=== PATIENT | female | born 1955 ===

== ENCOUNTER 2018-02-22 10:01 | Inpatient (IN) | payer MEDICAID ==
[2018-02-15 11:34] LABS: APPEARANCE,URINE CLEAR; BILIRUBIN, URINE NEGATIVE (NEGATIVE); COLOR,URINE PALE YELLOW; GLUCOSE, URINE (UA) NEGATIVE (NEGATIVE); KETONES,URINE NEGATIVE (NEGATIVE); NITRITE,URINE NEGATIVE (NEGATIVE); PH,URINE 6 (4.5-8.0); PROTEIN,URINE NEGATIVE (NEGATIVE); UROBILINOGEN,URINE NORMAL MG/DL (0.0-1.0)
[2018-02-15 11:36] LABS: EOSINOPHILS % (AUTO) 0.6 % (0.0-3.0); HEMATOCRIT 43.5 % (37.0-47.0); HEMOGLOBIN 14.5 G/DL (12.0-16.0); LYMPHOCYTES % (AUTO) 34.2 % (20.0-45.0); MEAN CORPUSCULAR VOLUME 87 FL (80-99); MONOCYTES % (AUTO) 4.1 % (1.0-10.0); NEUTROPHILS % (AUTO) 60.1 % (45.0-75.0); PLATELET COUNT 142 K/UL (150-450); RED CELL DISTRIBUTION WIDTH 11.4 % (11.6-14.8); WHITE BLOOD COUNT 7.4 K/UL (4.8-10.8)
[2018-02-15 12:15] LABS: LEUKOCYTE ESTERASE ,URINE 2+ (NEGATIVE)
[2018-02-15 13:02] LABS: ALANINE AMINOTRANSFERASE 84 U/L (12-78); ALKALINE PHOSPHATASE 121 U/L (46-116); ANION GAP 10 mmol/L (5-15); ASPARTATE AMINO TRANSFERASE 45 U/L (15-37); BILIRUBIN,TOTAL 0.7 MG/DL (0.2-1.0); BLOOD UREA NITROGEN 14 mg/dL (7-18); CALCIUM 9.6 MG/DL (8.5-10.1); CARBON DIOXIDE 27 MMOL/L (21-32); CHLORIDE 105 MMOL/L (98-107); CREATININE 0.7 MG/DL (0.55-1.30); POTASSIUM 3.9 MMOL/L (3.5-5.1); SODIUM 142 MMOL/L (136-145)
--- NOTE | 2018-02-21 11:15 | Pre-op HX & Phy Repo 2 SIG ---
DATE OF ADMISSION: 02/22/2018 PREOPERATIVE HISTORY AND PHYSICAL DATE SCHEDULED FOR OUTPATIENT SURGERY: 02/22/2018. HISTORY OF PRESENT ILLNESS: The patient is a 62-year-old female in overall stable health, with two foci of invasive ductal carcinoma of her left breast. The patient presented for screening mammography and was found to have a 13 mm spiculated mass in the left mid breast at 1 to 1:30 position approximately 5 to 6 cm from the nipple. She also was found to have a left more posterior small spiculated mass at 2:30 approximately 2 cm from the nipple. Core biopsy of both revealed invasive ductal carcinoma, moderately differentiated. Estrogen and progesterone receptor positive. HER2-negative. The patient is scheduled to undergo left breast partial mastectomy to encompass both lesions with preoperative needle localization and left axillary lymph node biopsy. MEDICATIONS: Metformin. ALLERGIES: None. OPERATIONS: Cholecystectomy. PHYSICAL EXAMINATION: VITAL SIGNS: The patient is 5 feet 1 inch, 149 pounds. Vital signs are all within normal limits. HEENT: Within normal limits. LUNGS: Clear. HEART: Regular rhythm. BREASTS: There are no palpable masses of either breast and no palpable axillary or supraclavicular lymphadenopathy. ABDOMEN: Soft with scars from cholecystectomy. 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 RECTAL: Per primary care, family consumer science f[employer] teacher. EXTREMITIES: Without edema. NEUROLOGIC: Physiologic. IMPRESSION: Invasive ductal carcinoma, moderately differentiated, two foci left breast upper outer quadrant. PLAN: Full discussion has been had with the patient, who has also consulted with Oncology. The oncologist recommended to proceed with the surgery as planned without any preoperative treatment. I had a full discussion with the patient regarding the nature of the condition, the nature of the surgery to include left breast partial mastectomy with preoperative needle localization x2 and left axillary lymph node biopsy. I have discussed the potential need for chemotherapy based on final pathology and the need for radiation therapy to the remaining breast and potential for additional procedures being needed based on final pathology of the two breast lesions and the lymph node. I have also discussed the potential need for postoperative chemotherapy and postoperative radiation therapy. I have discussed the risks of surgery including bleeding, infection, need for additional procedures, scarring, distortion of the breast, neuritic or neuralgia symptoms from the axillary node, procedure, etc. All questions have been answered. She understands and agrees to proceed. Toñito Ortega M.D. DR: ELKE JOB#: [id number] CC:
--- NOTE | 2018-02-21 17:15 | Cardiology Report ---
APPROVED REPORT EKG Measurement Heart [id number] ID [id number] Normal sinus rhythm Cannot rule out Anterior infarct, age undetermined Abnormal ECG
[~2018-02-22] VITALS: Ht 154.9 cm; Wt 65.8 kg
[2018-02-22] VITALS (11 sets, daily range): BP systolic 97–149; BP diastolic 56–82
[~2018-02-22 10:01] MED LIST: ceFAZolin sod 1 GM in D5W 55 ML IVPB ONE
[2018-02-22] MEDS ORDERED: VITAMIN E100 UNI4 PO (10:46)
[2018-02-22] MEDS ORDERED: METFORMIN HCL1000 M2 ORAL (10:46)
--- NOTE | 2018-02-22 11:27 | Pre-Procedure Note/Attestation ---
Pre-Procedure Note/Attestation Complete Prior to Procedure Planned Procedure: left Procedure Narrative: left breast partial mastectomy with pre-operative needle localization, and left axillary lymph node biopsy Indications for Procedure Pre-Operative Diagnosis: invasive ductal carcinoma left breast 2 foci upper outer quadrant Attestation I attest that I discussed the nature of the procedure; its benefits; risks and complications; and alternatives (and the risks and benefits of such alternatives ), prior to the procedure, with the patient (or the patient's legal patient financial representative). I attest that, if there was a reasonable possibility of needing a blood transfusion, the patient (or the patient's legal patient financial representative) was given the [place] Department [employer] standardized written summary, pursuant to the [place] Blood Safety Act ([place] Health and Safety Code # 1645, as amended). I attest that I re-evaluated the patient just prior to the surgery and that there has been no change in the patient's H&P, except as documented below: none Toñito Ortega MD February 22, 2018 11:27
[2018-02-22] MEDS ORDERED: Bupivacaine 0.5% Inj 30 ml vial INJ ONE (11:45)
[2018-02-22] MEDS ORDERED: EPINEPHrine 1mg/1ml Amp ONE (11:45)
[2018-02-22] MEDS ORDERED: Lidocaine 1% 10mg/ml/Epi 0.005mg/ml 30ml vial INJ ONE (11:45)
[2018-02-22] MEDS ORDERED: LR 1000ml 1,000 ML IVLG SCH (11:53)
[2018-02-22] MEDS ORDERED: Sodium Chloride 10ml vial INJ ONE (11:59)
[2018-02-22] MEDS ORDERED: LR 1000ml ONE (12:00)
[2018-02-22] MEDS ORDERED: LORazepam Inj 2mg/ml 1ml IV PRN (12:00)
[2018-02-22] MEDS ORDERED: Midazolam 2mg/2ml Inj IVP PRN (12:00)
[2018-02-22] MEDS ORDERED: fentaNYL 100 mcg/2 mL IV PRN (12:00)
[2018-02-22] MEDS ORDERED: Atropine Inj 1mg/10ml Syr IV PRN (12:00)
[2018-02-22] MEDS ORDERED: Labetalol 5mg/ml 20ml vial IV PRN (12:00)
[2018-02-22] MEDS ORDERED: Norco 5mg/325mg tab ORAL PRN ×2 (12:00→16:12)
[2018-02-22] MEDS ORDERED: Sterile Water Irrig 1000ml IRRIG ONE (12:00)
[2018-02-22] MEDS ORDERED: HYDROcodone/Acetamin 7.5/325 tab ORAL PRN (12:00)
[2018-02-22] MEDS ORDERED: Metoclopramide 10mg/2ml Inj IVP PRN (12:00)
[2018-02-22] MEDS ORDERED: Lidocaine 1% Plain 30 ml INJ ONE (12:00)
[2018-02-22] MEDS ORDERED: Propofol 1,000mg/ 100ml btl IV ONE (12:00)
[2018-02-22] MEDS ORDERED: oxyCODONE HCL/Acetaminophen 5/325mg ORAL PRN (12:00)
[2018-02-22] MEDS ORDERED: NS Irrig 1000ml ONE (12:00)
[2018-02-22] MEDS ORDERED: Acetaminophen (Non formulary) 100 ML IV ONE (12:00)
[2018-02-22] MEDS ORDERED: DiphenhydrAMINE 50mg/ml Inj IVP PRN (12:00)
[2018-02-22] MEDS ORDERED: Ketorolac 30mg Inj IV PRN ×2 (12:00)
--- NOTE | 2018-02-22 12:37 | Anethesia Preoperative Eval ---
Anesthesia Pre-op PMH/ROS General Date of Evaluation: February 22, 2018 Time of Evaluation: 11:54 Anesthesiologist: Dash ASA Score: ASA 3 Mallampati Score Class I : Soft palate, uvula, fauces, pillars visible Class II: Soft palate, uvula, fauces visible Class III: Soft palate, base of uvula visible Class IV: Only hard plate visible Mallampati Classification: Class II Surgeon: Shannon Diagnosis: Invasive ductal carcinoma, moderately differentiated, two foci Surgical Procedure: L Partial Mastectomy with Axillary node Dissection Anesthesia History: none Family History: no anesthesia problems Allergies: Coded Allergies: No Known Allergies (Unverified , 02/22/18) Medications: see eMAR Past Medical History Gastrointestinal/Genitourinary: Reports: other - Liver Inflammation Endocrine: Reports: DM Hematology/Immune: Reports: other - Invasive ductal carcinoma, moderately differentiated, two foci PSxH Narrative: R eye SX, Cholecystectomy, Bilateral Breast bx Anesthesia Pre-op Phys. Exam Physician Exam Last Vital Signs Date Time Temp Pulse Resp B/P (MAP) Pulse Ox O2 Delivery O2 Flow Rate FiO2 02/22/18 10:48 97.6 73 18 132/56 98 Room Air 97.6 Constitutional: NAD Neurologic: CN 2-12 intact Cardiovascular: RRR Respiratory: CTA Gastrointestinal: S/NT/ND Airway Exam Mallampati Score: Class II MO: full ROM: full Teeth: intact Anesthesia Pre-op A/P Risk Assessment & Plan Assessment: ASA 3 Plan: GA, BIS Status Change Before Surgery: No Pre-Antibiotics Dru Gram Ancef IV Given Within 1 Hr of Incision: Yes Time Given: 12:06 Osman Bowling MD February 22, 2018 12:37
--- NOTE | 2018-02-22 12:39 | Immediate Post-Op Evaluation ---
Immediate Post-Op Evalulation Immediate Post-Op Evalulation Procedure: L Partial Mastectomy with Axillary node Dissection Date of Evaluation: February 22, 2018 Time of Evaluation: 14:37 IV Fluids: 400 LR Blood Products: 0 Estimated Blood Loss: 20 Urinary Output: 0 Blood Pressure Systolic: 128 Blood Pressure Diastolic: 80 Pulse Rate: 73 Respiratory Rate: 16 O2 Sat by Pulse Oximetry: 99 Temperature (Fahrenheit): 97.8 Pain Score (1-10): 2 Nausea: No Vomiting: No Complications 0 Patient Status: awake, reacts, patent, extubated, none Hydration Status: adequate Dru Gram Ancef IV Given Within 1 Hr of Incision: Yes Time Given: 12:06 Osman Bowling MD February 22, 2018 12:39
[2018-02-22] MEDS ORDERED: fentaNYL 100 mcg/2 mL IV ONE (13:21)
--- NOTE | 2018-02-22 14:35 | Brief Operative Note ---
Immediate Post Operative Note Operative Note Pre-op Diagnosis: invasive ductal carcinoma left breast 2 foci upper outer quadrant Procedure: left breast partial mastectomy with pre-operative needle localization and left axillary lymph node biopsy Post-op Diagnosis: same Post-op Diagnosis: same as pre-op Findings: consistent w/pre-op dx studies Surgeon: kiki Anesthesiologist: oneida Anesthesia: general Specimen: yes - left breast, axillary nodes Complications: none Condition: stable Fluids: see anesthesia record Estimated Blood Loss: minimal Drains: LATRICIA Implant(s) used?: No Toñito Ortega MD February 22, 2018 14:35
[2018-02-22] MEDS ORDERED: Morphine Sulfate 4mg/ml Inj SUBQ PRN (16:12)
[2018-02-22] MEDS: D5 1/2NS w/KCl 20mEq 1,000 ML IV SCH (16:55)
--- NOTE | 2018-02-22 17:00 | Operative Note - Dictated ---
DATE OF OPERATION: 02/22/2018 SURGEON: Toñito Ortega M.D. GAMING ASSOCIATE SURGEON: None. ANESTHESIOLOGIST: Dr. Osman Bowling. TYPE OF ANESTHESIA: General. PREOPERATIVE DIAGNOSIS: Invasive ductal carcinoma, left breast, two foci, upper outer quadrant. POSTOPERATIVE DIAGNOSIS: Invasive ductal carcinoma, left breast, two foci, upper outer quadrant. OPERATION PERFORMED: Left breast partial mastectomy with preoperative needle localization and left axillary lymph node biopsy. DESCRIPTION OF PROCEDURE: The patient was taken to the operating room and under general anesthesia with sequential compression device stockings in place and having received intravenous antibiotics, she was prepped and draped in usual fashion including the left arm within the field. The two wire localizations were in the upper outer quadrant of the left breast. A transverse curvilinear incision was made achieving hemostasis with cautery. Flaps were dissected circumferentially. The incision was deepened medially to the pectoralis muscle and then the entire quadrant resected with wires. Some disruption occurred medially and additional tissue was taken medially. The specimen was oriented with multiple suture markers and given to the pathologist. The inked specimen was then cut by pathology revealing the presence of both lesions. The inferior margin was felt to be close and additional inferior margin tissue was taken. Hemostasis was carefully achieved with cautery. The field was copiously irrigated with saline and hemostasis was secured. The incision was closed with interrupted inverted 2-0 Vicryl deep dermal subcutaneous sutures and then 4-0 Monocryl continuous subcuticular suture. Attention was then directed to the left axilla after changing gloves. A transverse curvilinear axillary incision was made achieving hemostasis with cautery. The clavipectoral fascia was incised. There were two palpable small lymph nodes which were excised using clips and cautery for hemostasis. They were both given to the pathologist who confirmed lymph node tissue. Through a separate stab incision inferiorly, a 19 mm Salvatore drain was placed into the axilla and sutured to the skin with a 2-0 nylon suture. The field was irrigated with saline and hemostasis was secured. the incision was closed with #0 Vicryl on the clavipectoral fascia, 3-0 Vicryl subcutaneous sutures, and 4-0 Monocryl subcuticular suture. Tincture of benzoin and half-inch Steri-Strips were applied to both incisions, followed by dry dressings and the surgical brassiere was applied. Final sponge and needle counts were correct. The patient tolerated the procedure well and left the operating room in good condition. Toñito Ortega M.D. DR: Zach JOB#: [id number] CC: IAIN
[2018-02-22] MEDS: metFORMIN 500mg tab ORAL SCH ×2 (17:54→18:00)
[2018-02-23] VITALS: BP 101/55
[2018-02-23] MEDS: D5 1/2NS w/KCl 20mEq 1,000 ML IV SCH (03:14)
[2018-02-23 04:00] VITALS: BP 104/61
[2018-02-23 08:00] VITALS: BP 106/60
[2018-02-23] MEDS: metFORMIN 500mg tab ORAL SCH (09:09)
--- NOTE | 2018-02-23 09:11 | General Progress Note ---
Progress Note Progress Note AVSS Feeling well and comfortable this AM. No need for analgesics this AM Breast and axilla incisions clean with intact steristrips. LATRICIA drain with minimal output serosang. Voiding and ambulating Being taught care of drain by RNs Imp. Stable Plan: Discharge wearing surgical bra To record LATRICIA drain outputs TID (+prn) F/U Breast Clinic on 02/26 1000 Rx - none to continue her pre-admission Metformin Toñito Ortega MD February 23, 2018 09:11
[2018-02-23 11:50] VITALS: BP 118/64
[2018-02-23 13:30] VITALS: BP 118/64
--- NOTE | 2018-02-23 13:30 | 48 Hour Post Anesthesia Eval ---
Post Anesthesia Evaluation Procedure: L Partial Mastectomy with Axillary node Dissection Date of Evaluation: February 23, 2018 Time of Evaluation: 11:50 Blood Pressure Systolic: 118 0: 64 Pulse Rate: 71 Respiratory Rate: 20 Temperature (Fahrenheit): 97.9 O2 Sat by Pulse Oximetry: 95 Airway: patent Nausea: No Vomiting: No Hydration Status: adequate Mental Status/LOC: patient returned to baseline Post-Anesthesia Complications: none Follow-up care needed: N/A Edith Burden M.D. February 23, 2018 13:30
--- NOTE | 2018-02-27 10:39 | Discharge Summary ---
Discharge Summary Hospital Course Date of Admission February 22, 2018 at 15:17 Date of Discharge February 23, 2018 at 14:05 Admitting Diagnosis Invasive ductal carcinoma, left breast, two foci, upper outer quadrant. Reason for Hospitalization: elective surgery ALAN Ahumada is a 62 year old female who was admitted on February 22, 2018 at 15: 17 for Carcinoma Left Breast. Patient was admitted for elective surgery. Procedures s/p 02/22/[address] Ortega Left breast partial mastectomy with preoperative needle localization and left axillary lymph node biopsy. Hospital Course s/p surgery course of recovery uneventful . VSS pain management addressed, controlled Breast and axilla incisions clean with intact steri-strips. LATRICIA drain with minimal serosanguineous drainage patient was taught how to care and empty LATRICIA drain voided freely ambulated tolerated diet stable for dc home wear surgical bra record LATRICIA output fup in breast clinic 02/26 FINAL DIAGNOSES Invasive ductal carcinoma, left breast, two foci, upper outer quadrant. s/p Left breast partial mastectomy with preoperative needle localization and left axillary lymph node biopsy. Discharge Medications Continued Medications: Metformin Hcl (Metformin Hcl Er) 1,000 Mg Tab.er.24 1000 MG ORAL BID, TAB (This prescription has been renewed) Discharge Condition Upon Discharge: stable Discharge Disposition Patient was discharged to Home () Discharge Instructions Discharge Instructions Special Instructions I have been assigned to complete a D/C Summary on this account. I was not involved in the patient management Jen Flores NP February 27, 2018 10:39
== END 2018-02-23 14:05 | disposition home or self-care (01) | DRG 363 ==
LOC: SUR 10:01 → 3E 15:17
PROC: 07B60ZX Excision of Left Axillary Lymphatic, Open Approach, Diagnostic (ICD-10-PCS; 2018-02-22)
PROC: 0HBU0ZZ Excision of Left Breast, Open Approach (ICD-10-PCS; principal; 2018-02-22 12:00)
DX: C50.412 Malignant neoplasm of upper-outer quadrant of left female breast (principal); E11.9 Type 2 diabetes mellitus without complications; Z90.49 Acquired absence of other specified parts of digestive tract; Z17.0 Estrogen receptor positive status [ER+]; Z79.84 Long term (current) use of oral hypoglycemic drugs
CPT/HCPCS: 36415; 80053; 81001; 82962; 85025; 85610; 85730; 93005; 94003; 94150; J2250; J2405